=== PATIENT | male | born 1965 | race African-American/Black ===

== ENCOUNTER 2020-03-13 12:32 | Emergency (ER) | payer MEDICAID ==
[~2020-03-13] VITALS: Ht 167.6 cm; Wt 68.0 kg
[2020-03-13 12:42] VITALS: BP 134/78
== END 2020-03-13 13:25 | disposition left against medical advice (07) ==
LOC: ER 12:58
DX: Z53.21 Procedure and treatment not carried out due to patient leaving prior to being seen by health care provider (principal)